=== PATIENT | female | born 1960 | race Caucasian/White ===

== ENCOUNTER → 2022-03-24 10:39 | Outpatient (BNVA) | payer OTHER, SELFPAY | PROVIDERS: PCP Physician Assistant; Visit Provider Emergency Medicine | DX: R69 Illness, unspecified (principal); J10.1 Influenza due to other identified influenza virus with other respiratory manifestations | CPT/HCPCS: 87400; 87426 ==

== ENCOUNTER → 2024-11-13 13:20 | Outpatient (BNVA) | payer OTHER, SELFPAY | PROVIDERS: PCP Physician Assistant; Visit Provider Nurse Practitioner | DX: R35.0 Frequency of micturition (principal); I10 Essential (primary) hypertension | CPT/HCPCS: 80053; 80061; 81000; 84443; 87086 ==

== ENCOUNTER 2025-01-17 18:01 | Emergency (ER) | payer OTHER, SELFPAY ==
--- OUTSIDE RECORDS SUMMARY | 2025-01-17 18:05 | XMS_ITS | Encounter Summary ---
Author Organization [facility] Address [address] [place] [address] Care Team Providers Care Electrical Cad Designer Name Role Phone Unavailable Primary Care Provider Unavailabl e Encounter Details Date Type Department Care Team (Late st Contact Info) Description 04/09/2006 Outpatient Historical [facility] Medicine [place] [address] [phone] Wendy Motley MD [address] [place] [phone] Social History Tobacco Use Types Packs/Day Years Used Date Smoking Tobacco: Never Assessed Comments Unknown Sex and Gender Information Value Date Recorded Sex Assigned at Not on file Legal Sex Female 3:03 AM DATA VIRTUALIZATION CONSULTANT Gender Identity Not on file Sexual Orientation Not on file documented as of this encounter Plan of Treatment Not on file documented as of this encounter Visit Diagnoses Not on filedocumented in this encounter
--- OUTSIDE RECORDS SUMMARY | 2025-01-17 18:05 | XMS_ITS | Encounter Summary ---
Author Organization [facility] Address [address] [place] [address] Care Team Providers Care Auto Transmission Specialist Name Role Phone Unavailable Primary Care Provider Unavailabl e Encounter Details Date Type Department Care Team (Late st Contact Info) Description 07/20/2002 Outpatient Historical [address] [phone] Svitlana Gaspar MD [address] [place] [address] Social History Tobacco Use Types Packs/Day Years Used Date Smoking Tobacco: Never Assessed Comments Unknown Sex and Gender Information Value Date Recorded Sex Assigned at Not on file Legal Sex Female 3:03 AM EDGER LINER Gender Identity Not on file Sexual Orientation Not on file documented as of this encounter Plan of Treatment Not on file documented as of this encounter Visit Diagnoses Not on filedocumented in this encounter
--- OUTSIDE RECORDS SUMMARY | 2025-01-17 18:05 | XMS_ITS | Encounter Summary ---
Author Organization [facility] Address [address] [place] [address] Care Team Providers Care Toe Puller Name Role Phone Unavailable Primary Care Provider Unavailabl e Encounter Details Date Type Department Care Team (Latest Contact Info) Description 07/20/[address] [phone] Svitlana Gaspar MD [address] [place] [address] HYPERTENSION NOS (Primary Dx); COUGH; ACUTE URI NOS Social History Tobacco Use Types Packs/Day Years Used Date Smoking Tobacco: Never Assessed Comments Unknown Sex and Gender Information Value Date Recorded Sex Assigned at Not on file Legal Sex Female 3:03 AM ROUTE DELIVERY DRIVER Gender Identity Not on file Sexual Orientation Not on file documented as of this encounter Plan of Treatment Not on file documented as of this encounter Visit Diagnoses Diagnosis Unspecified essential hypertension- Primary Cough Acute upper respiratory infections of unspecified site documented in this encounter
[2025-01-17 18:06] VITALS: BP 117/75; PULSE 66; RESP 16; TEMP 36.4; O2SAT 99; BMI 30.9
--- OUTSIDE RECORDS SUMMARY | 2025-01-17 18:06 | XMS_ITS | Encounter Summary ---
Author Organization [facility] Address [address] [place] [address] Care Team Providers Care Emts Name Role Phone Unavailable Primary Care Provider Unavailabl e Encounter Details Date Type Department Care Team (Latest Contact Info) Description 10/25/2006 Outpatient Historical [facility]rology- [address]trance [address], [address] [place] [address] Williams Khan MD [address] [place] [address] [address] [place] [address] Urinary Tract Infection, Site not Specified (Primary Dx) Social History Tobacco Use Types Packs/Day Years Used Date Smoking Tobacco: Never Assessed Comments Unknown Sex and Gender Information Value Date Recorded Sex Assigned at Not on file Legal Sex Female 3:03 AM WIRE DRAWING DIE MAKER Gender Identity Not on file Sexual Orientation Not on file documented as of this encounter Plan of Treatment Not on file documented as of this encounter Visit Diagnoses Diagnosis Urinary tract infection, site not specified- Primary documented in this encounter
--- OUTSIDE RECORDS SUMMARY | 2025-01-17 18:06 | XMS_ITS | Encounter Summary ---
Author Organization [facility] Address [address] [place] [address] Care Team Providers Care Hoist Cylinder Loader Name Role Phone Unavailable Primary Care Provider Unavailabl e Encounter Details Date Type Department Care Team (Latest Contact Info) Description 01/16/2005 Outpatient Historical [facility] Medicine [address] [phone] Wendy Motley MD [address] [place] [phone] HYPERTENSION NOS (Primary Dx); ALLERGY, UNSPECIFIED; ROUTINE COMPUTER NETWORK SUPPORT SPECIALIST EXAMINATION; Vaccine for influenza Social History Tobacco Use Types Packs/Day Years Used Date Smoking Tobacco: Never Assessed Comments Unknown Sex and Gender Information Value Date Recorded Sex Assigned at Not on file Legal Sex Female 3:03 AM TEXTILE CONSERVATOR Gender Identity Not on file Sexual Orientation Not on file documented as of this encounter Plan of Treatment Not on file documented as of this encounter Visit Diagnoses Diagnosis Unspecified essential hypertension- Primary Allergy, unspecified not elsewhere classified Routine gynecological examination Vaccine for influenza Need for prophylactic vaccination and inoculation against influenza documented in this encounter
--- OUTSIDE RECORDS SUMMARY | 2025-01-17 18:06 | XMS_ITS | Encounter Summary ---
Author Organization [facility] Address [address] [place] [address] Care Team Providers Care Divemaster Name Role Phone Unavailable Primary Care Provider Unavailabl e Encounter Details Date Type Department Care Team (Latest Contact Info) Description 12/31/2003 Outpatient Historical [facility] Medicine[address] [phone] Wendy Motley MD [address] [place] [phone] HYPERTENSION NOS (Primary Dx) Social History Tobacco Use Types Packs/Day Years Used Date Smoking Tobacco: Never Assessed Comments Unknown Sex and Gender Information Value Date Recorded Sex Assigned at Not on file Legal Sex Female 3:03 AM TELEPHONE INTERCEPTOR OPERATOR Gender Identity Not on file Sexual Orientation Not on file documented as of this encounter Plan of Treatment Not on file documented as of this encounter Visit Diagnoses Diagnosis Unspecified essential hypertension- Primary documented in this encounter
--- OUTSIDE RECORDS SUMMARY | 2025-01-17 18:06 | XMS_ITS | Encounter Summary ---
Author Organization [facility] Address [address] [place] [address] Care Team Providers Care Contact Center Consultant Name Role Phone Unavailable Primary Care Provider Unavailabl e Encounter Details Date Type Department Care Team (Late st Contact Info) Description 01/16/2005 Outpatient Historical [facility] Medicine [place] [address] [phone] Wendy Motley MD [address] [place] [phone] Social History Tobacco Use Types Packs/Day Years Used Date Smoking Tobacco: Never Assessed Comments Unknown Sex and Gender Information Value Date Recorded Sex Assigned at Not on file Legal Sex Female 3:03 AM MUSIC DIRECTOR Gender Identity Not on file Sexual Orientation Not on file documented as of this encounter Plan of Treatment Not on file documented as of this encounter Visit Diagnoses Not on filedocumented in this encounter
--- OUTSIDE RECORDS SUMMARY | 2025-01-17 18:06 | XMS_ITS | Clinical Summary ---
Author Organization [facility] Address [address] [place] [address] Care Team Providers Care Market Research Interviewer Name Role Phone Unavailable Primary Care Provider Unavailabl e Allergies Active Allergy Reactions Criticality Noted Date Comments Aloe Rash Low 03/24/2019 Medications No known medications Active Problems No known active problems Immunizations Immunization Administration Dates Next Due (TDVAX)(7 YRS UP) TETANUS AN D DIPHTHERIA TOXOIDS, ADSORBED (2 LF OF TETANUS TOXOID AND 2 LF OF DIPHTHERIA TOXOID), 0.5ML (PF), IM 10/03/2007 Influenza Seasonal Unspecified Formulation IM ,02/15/1998 Family History Medical History Relation Name Comments Cancer Father Cancer Maternal Grandmother Diabetes Mother Heart Disease Paternal Grandfather Heart Disease Paternal Grandmother Relation Name Status Comments Father Maternal Grandmother Mother Paternal Grandfather Paternal Grandmother Social History Tobacco Use Types Packs/Day Years Used Date Smoking Tobacco: Never Smokeless Tobacco: Never Comments No Sex and Gender Information Value Date Recorded Sex Assigned at Not on file Legal Sex Female 3:03 AM BELLY ROLLER Gender Identity Not on file Sexual Orientation Not on file Last Filed Vital Signs Vital Sign Reading Time Taken Comments Blood Pressure 150/90 03/24/2019 9:02 AM BELLY ROLLER Pulse - - Temperature - - Respiratory Rate - - Oxygen Saturation - - Inhaled Oxygen Concentration - - Weight 75.2 kg (165 lb 12.8 oz) 03/24/2019 9:02 AM BELLY ROLLER Height 160 cm (5' 3 ) 03/24/2019 9:02 AM BELLY ROLLER Body Mass Index 29.37 03/24/2019 9:02 AM BELLY ROLLER Plan of Treatment Health Maintenance Due Date Last Done Comments BREAST CANCER SCREENING 1998 COLORECTAL SCREENING 12/09/2003 Colorectal Cancer Screening 12/09/2003 FIT-DNA Q 3 years 12/09/2003 FIT/FOBT Q 1 year 12/09/2003 Flex Sig/CT Colonography Q 5 years 12/09/2003 DTAP/TDAP/TD VACCINES (1 - Tdap) 10/04/2007 10/03/19 08 PNEUMOCOCCAL VACCINE 50+ YEA RS (1 of 1 - PCV) 2008 ZOSTER VACCINE (1 of 2) 2008 OSTEOPOROSIS SCREENING 12/09/2023 INFLUENZA VACCINE (#1) 2024 01/16/2005, 1997 RSV VACCINE (60+ or ) (1 - 1-dose 75+ series) 2033 Insurance [employer] [id number]
--- OUTSIDE RECORDS SUMMARY | 2025-01-17 18:06 | XMS_ITS | Encounter Summary ---
Author Organization [facility] Address [address] [place] [address] Care Team Providers Care Migratory Worker Name Role Phone Unavailable Primary Care Provider Unavailabl e Encounter Details Date Type Department Care Team (Latest Contact Info) Description 12/17/2003 Outpatient Historical [facility] Medicine [address] [phone] Wendy Motley MD [address] [place] [phone] HYPERTENSION NOS (Primary Dx); CONTRACEPTIVE MANGMT NEC; Gynecologic examination Social History Tobacco Use Types Packs/Day Years Used Date Smoking Tobacco: Never Assessed Comments Unknown Sex and Gender Information Value Date Recorded Sex Assigned at Not on file Legal Sex Female 3:03 AM REGIONAL INTERMODAL TRUCK DRIVER Gender Identity Not on file Sexual Orientation Not on file documented as of this encounter Plan of Treatment Not on file documented as of this encounter Visit Diagnoses Diagnosis Unspecified essential hypertension- Primary Other general counseling and advice for contraceptive management Gynecologic examination Gynecological examination documented in this encounter
--- OUTSIDE RECORDS SUMMARY | 2025-01-17 18:06 | XMS_ITS | Encounter Summary ---
Author Organization [facility] Address [address] [place] [address] Care Team Providers Care Knife Grinder Name Role Phone Unavailable Primary Care Provider Unavailabl e Encounter Details Date Type Department Care Team (Latest Contact Info) Description 11/23/[address] [phone] Svitlana Gaspar MD [address] [place] [address] Gynecologic examination (Primary Dx); SCREENING MAL NEOP-SITE NEC Social History Tobacco Use Types Packs/Day Years Used Date Smoking Tobacco: Never Assessed Comments Unknown Sex and Gender Information Value Date Recorded Sex Assigned at Not on file Legal Sex Female 3:03 AM PLAY WRITER Gender Identity Not on file Sexual Orientation Not on file documented as of this encounter Plan of Treatment Not on file documented as of this encounter Visit Diagnoses Diagnosis Gynecologic examination- Primary Gynecological examination Special screening for malignant neoplasms of other sites documented in this encounter
--- OUTSIDE RECORDS SUMMARY | 2025-01-17 18:06 | XMS_ITS | Encounter Summary ---
Author Organization [facility] Address [address] [place] [address] Care Team Providers Care Quality Systems Specialist Name Role Phone Unavailable Primary Care Provider Unavailabl e Encounter Details Date Type Department Care Team (Late st Contact Info) Description 11/23/2002 Outpatient Historical [address] [phone] Svitlana Gaspar MD [address] [place] [address] Social History Tobacco Use Types Packs/Day Years Used Date Smoking Tobacco: Never Assessed Comments Unknown Sex and Gender Information Value Date Recorded Sex Assigned at Not on file Legal Sex Female 3:03 AM CHIROPRACTOR ASSISTANT Gender Identity Not on file Sexual Orientation Not on file documented as of this encounter Plan of Treatment Not on file documented as of this encounter Visit Diagnoses Not on filedocumented in this encounter
--- OUTSIDE RECORDS SUMMARY | 2025-01-17 18:06 | XMS_ITS | Encounter Summary ---
Author Organization [facility] Address [address] [place] [address] Care Team Providers Care Animal Cruelty Investigator Name Role Phone Unavailable Primary Care Provider Unavailabl e Encounter Details Date Type Department Care Team (Late st Contact Info) Description 12/17/2003 Outpatient Historical [facility] Medicine [place] [address] [phone] Wendy Motley MD [address] [place] [phone] Social History Tobacco Use Types Packs/Day Years Used Date Smoking Tobacco: Never Assessed Comments Unknown Sex and Gender Information Value Date Recorded Sex Assigned at Not on file Legal Sex Female 3:03 AM THERAPEUTIC PROGRAM WORKER Gender Identity Not on file Sexual Orientation Not on file documented as of this encounter Plan of Treatment Not on file documented as of this encounter Visit Diagnoses Not on filedocumented in this encounter
--- OUTSIDE RECORDS SUMMARY | 2025-01-17 18:06 | XMS_ITS | Encounter Summary ---
Author Organization [facility] Address [address] [place] [address] Care Team Providers Care Dam Operator Name Role Phone Unavailable Primary Care Provider Unavailabl e Encounter Details Date Type Department Care Team (Latest Contact Info) Description 04/05/2006 Outpatient Historical [facility] Medicine [address] [phone] Wendy Motley MD [address] [place] [phone] Unspecified Essential Hypertension (Primary Dx); Other General Counseling and Advice for Contraceptive Management; Routine Gynecological Examination Social History Tobacco Use Types Packs/Day Years Used Date Smoking Tobacco: Never Assessed Comments Unknown Sex and Gender Information Value Date Recorded Sex Assigned at Not on file Legal Sex Female 3:03 AM MANAGING MEMBER Gender Identity Not on file Sexual Orientation Not on file documented as of this encounter Plan of Treatment Not on file documented as of this encounter Visit Diagnoses Diagnosis Unspecified essential hypertension- Primary Other general counseling and advice for contraceptive management Routine gynecological examination documented in this encounter
--- OUTSIDE RECORDS SUMMARY | 2025-01-17 18:06 | XMS_ITS | Encounter Summary ---
Author Organization [facility] Address [address] [place] [address] Care Team Providers Care Engraver Flatware Name Role Phone Unavailable Primary Care Provider Unavailabl e Encounter Details Date Type Department Care Team (Latest Contact Info) Description 09/12/[address] [phone] Svitlana Gaspar MD [address] [place] [address] CELLULITIS NOS (Primary Dx); Dermatitis due to plant; HYPERTENSION NOS; Gynecologic examination Social History Tobacco Use Types Packs/Day Years Used Date Smoking Tobacco: Never Assessed Comments Unknown Sex and Gender Information Value Date Recorded Sex Assigned at Not on file Legal Sex Female 3:03 AM PUBLIC POLICY ASSOCIATE Gender Identity Not on file Sexual Orientation Not on file documented as of this encounter Plan of Treatment Not on file documented as of this encounter Visit Diagnoses Diagnosis Cellulitis and abscess of unspecified site- Primary Dermatitis due to plant Contact dermatitis and other eczema due to plants (except food) Unspecified essential hypertension Gynecologic examination Gynecological examination documented in this encounter
--- OUTSIDE RECORDS SUMMARY | 2025-01-17 18:06 | XMS_ITS | Encounter Summary ---
Author Organization [facility] Address [address] [place] [address] Care Team Providers Care Financial Planning Consultant Name Role Phone Unavailable Primary Care Provider Unavailabl e Encounter Details Date Type Department Care Team (Latest Contact Info) Description 02/28/2007 Outpatient Historical [facility]- [address] Entrance B, 3rd [place] [address] Williams Khan MD [address] [place] [address] [address] [place] [address] Urinary Tract Infection, Site not Specified (Primary Dx) Social History Tobacco Use Types Packs/Day Years Used Date Smoking Tobacco: Never Assessed Comments Unknown Sex and Gender Information Value Date Recorded Sex Assigned at Not on file Legal Sex Female 3:03 AM QA ENGINEER Gender Identity Not on file Sexual Orientation Not on file documented as of this encounter Plan of Treatment Not on file documented as of this encounter Visit Diagnoses Diagnosis Urinary tract infection, site not specified- Primary documented in this encounter
--- NOTE | 2025-01-17 18:30 | ED_ITS ---
HPI - Nausea/Vomiting/Diarrhea 2 General: Chief complaint: Nausea/Vomiting/Diarrhea Stated complaint: diyzz, lightheaded, n/v/d Time Seen by Provider: 01/17/25 18:19 Source: patient Mode of arrival: wheelchair Limitations: no limitations History of Present Illness: Patient is a 64-year-old female who presents to the ED today for medical evaluation. Patient states she had ate at a restaurant prior to attending a fall festival in [place]. She states they had shortly arrived at the festival when she began feeling acutely ill with nausea and diarrhea. She then subsequently had some vomiting. She feels like her vision got wavy . She states this has since resolved. She was evaluated by the fire department who took her blood pressure and pulse ox-reporting these were both low but does not have specific numbers. Upon arrival her vitals are stable. She does feel like she feels better apart from feeling generally weak. She states vision is normal. She has no focal neurologic deficits. She is not having any abdominal pain. She feels like her nausea has improved. MD elicited complaint: nausea, vomiting and diarrhea Onset (ago): hour(s) Description of diarrhea: watery Associated nausea: Yes Associated abdominal pain: No Location of pain: None Pain consistency: now resolved Severity: moderate Exacerbating factors: none Relieving factors: none Associated symtoms: Reports nausea; Denies change in vision, chest pain, dizziness, dysuria, fatigue, headache(s), malaise, palpitations or syncope Related Data Previous Rx's ?Medication ?Instructions ?Recorded cetirizine 10 mg capsule 10 mg PO DAILY #30 caps 11/14 01/07 estradiol 0.01% (0.1 mg/gram) 2 g vaginal DAILY #42.5 grams 12/11/24 vaginal cream lisinopril 5 mg tablet 5 mg PO DAILY #30 tabs 12/11 hydrochlorothiazide 25 mg tablet See Rx Instructions . Route 01/05/25 .COMPLEX #30 tabs prednisone 10 mg tablet 30 mg (3 x 10 mg) PO DAILY # 15 tabs 01/08/25 Allergies Allergy/AdvReac Type Severity Reaction Status Date / Time niacin Allergy Unknown Verified 01/08/25 13:36 Review of Systems 2 Const: Reports: other (generalized weakness); Denies: fever(s), chills, body aches, fatigue or malaise Eyes: Denies: change in vision or blurry vision Card: Denies: chest pain, palpitations, irregular heart rhythm, lightheadedness, syncope or dyspnea on exertion Resp: Denies: dyspnea, productive cough or pain on inspiration GI: Reports: nausea, vomiting and diarrhea; Denies: abdominal pain : Denies: flank pain or dysuria Musc: Denies: neck pain, back pain, extremity pain, extremity swelling, joint pain, joint swelling or joint redness Skin/Breast: Denies: rash Neuro: Reports: difficulty walking (secondary to feeling weak); Denies: headache(s), numbness in extremities, weakness in extremities, sensory changes or dizziness PFSH ED 2 PFSH: Social History Smoking and tobacco/nicotine status: never used tobacco/nicotine Physical Exam 2 Const: COMMON NORMALS: no acute distress, average body habitus, patient oriented x3, no limitations, healthy appearing, alert and well nourished G ENERAL APPEARANCE: cooperative ORIENTATION/CONSCIOUSNESS: Yes awake, Yes oriented to person, Yes oriented to place and Yes oriented to time HENMT: COMMON NORMALS: normocephalic and atraumatic HEAD & SCALP: normal to inspection, normocephalic and atraumatic FACE & SINUS: normal facial exam and face symmetric Eye: COMMON NORMALS: Equal, round and reactive pupils present and EOMs intact bilaterally GENERAL EYE: appearance normal, both eyes and all related structures and normal light reflex PUPIL: Yes Equal, round and reactive pupils present DIRECT OPHTHALMOSCOPY: Yes normal light reflex Neck/C-Spine: COMMON NORMALS: full ROM, no lymphadenopathy, supple and no meningeal signs Chest: COMMONS NORMALS: normal inspection of the chest Resp: COMMON NORMALS: normal respiratory effort and clear to auscultation bilaterally AUSCULTATION: clear to auscultation bilaterally Cardio: COMMON NORMALS: regular rate and regular rhythm RATE: regular rate RHYTHM: regular rhythm GI: COMMON NORMALS: Normal to inspection, nondistended, normoactive bowel sounds present, Soft to palpation, non-tender, No hepatosplenomegaly present and no masses PALPATION: Yes Soft to palpation and Yes No hepatosplenomegaly present : COMMON NORMALS: Yes no CVA tenderness BLADDER/KIDNEY EXAM: Yes no CVA tenderness Back/Pelvis: COMMON NORMALS: no CVA tenderness and thoracic and lumbar spine normal to inspection Extremity: COMMON NORMALS: normal to inspection GENERAL: Yes normal exam except as noted Neuro: TRANG COMA SCALE: document GCS findings [place] coma scale eye opening: Spontaneous [place] coma scale verbal response: Orientated [place] coma scale motor response: Obey commands [place] coma scale total score: 15 COMMON NORMALS: patient oriented x3, CN's II-XII intact bilaterally, moves all extremities, no focal motor deficits and no sensory deficits noted S ENSORIUM/ORIENTATION: Yes alert, Yes oriented to person, Yes oriented to place and Yes oriented to time MENINGEAL SIGNS: Yes no meningeal signs Skin: COMMON NORMALS: no rashes or lesions noted GENERAL SKIN EXAM: no rashes or lesions noted Course 2 Vital Signs: Vital signs: Vital Signs Temperature 97.5 F L 01/17/25 18:06 Pulse Rate 71 01/17/25 19:18 Respiratory Rate 16 01/17/25 18:06 Blood Pressure 108/56 01/17/25 19:18 Pulse Oximetry 97 01/17/25 19:18 Oxygen Delivery Me thod Room Air 01/17/25 19:18 MDM - Nausea/Vomiting/Diarrhea Medical Decision Making Patient feeling better after IV fluids here. Her vital signs are stable. She has not had any further episodes of vomiting or diarrhea. No abdominal pain. Blood work overall nonactionable. She does have a white count of 18.5 most likely secondary to steroid use-states she was recently prescribed steroids secondary to bronchitis and is still taking them. UA and CXR without evidence for infection. Patient is now ambulatory. She feels comfortable going home. Return to ED precautions discussed. Differential Diagnosis Likely food poisoning, gastroenteritis and dehydration Medical Records I reviewed the patient's medical records. Lab Data I reviewed the patient's lab results. 01/17/25 18:59 01/17/25 18:59 Radiology Impressions Chest X-Ray 01/17/25 19:08 IMPRESSION: No acute findings. Laboratory Results WBC 18.54 10^3/uL (3.29-11.43) H 01/17/25 18:59 RBC 4.06 10^6/uL (3.85-5.65) 01/17/25 18:59 Hgb 12.70 g/dL (11.27-16.99) 01/17/25 18:59 Hct 38.4 % (36-47) 01/17/25 18:59 MCV 94.6 fl (85-98) 01/17/25 18:59 MCH 31.3 pg (27-33) 01/17/25 18:59 MCHC 33.1 g/dL (30-55) 01/17/25 18:59 RDW 15.3 % (12.1-15.1) H 01/17/25 18:59 Plt Count 247 10^3/cmm (157-399) 01/17/25 18:59 MPV 11.2 fL (7.4-10.4) H 01/17/25 18:59 Neut % (Auto) 83.1 % 01/17/25 18:59 Lymph % (Auto) 7.2 % 01/17/25 18:59 [place] % (Auto) 8.7 % 01/17/25 18:59 Eos % (Auto) 0.2 % 01/17/25 18:59 Baso % (Auto) 0.3 % 01/17/25 18:59 Neut # (Auto) 15.42 10^3/uL (1.8-7.7) H 01/17/25 18:59 Lymph # (Auto) 1.3 10^3/uL (0.8-4.8) 01/17/25 18:59 [place] # (Auto) 1.6 10^3/uL (0.2-0.9) H 01/17/25 18:59 Eos # (Auto) 0.0 10^3/uL (0.0-0.8) 01/17/25 18:59 Baso # (Auto) 0.1 10^3/uL (0.0-0.1) 01/17/25 18:59 Nucleated RBC % (auto) 0 % 01/17/25 18:59 Nucleated RBCs # 0.0 /100WBC 01/17/25 18:59 Sodium 140 mmol/L (136-145) 01/17/25 18:59 Potassium 3.5 mmol/L (3.5-5.1) 01/17/25 18:59 Chloride 102 mmol/L (98-107) 01/17/25 18:59 Carbon Dioxide 28 mmol/L (22-29) 01/17/25 18:59 Anion Gap 13.5 (5-19) 01/17/25 18:59 BUN 20 mg/dL (8-23) 01/17/25 18:59 Creatinine 1.1 mg/dL (0.5-0.9) H 01/17/25 18:59 GFR Calculation 49.7 mL/min (90-130) L 01/17/25 18:59 Glucose 131 mg/dL (65-115) H 01/17/25 18:59 Calculated Osmolality 294 mOsm/kg (285-295) 01/17/25 18:59 Calcium 9.2 mg/dL (8.5-10.5) 01/17/25 18:59 Total Bilirubin 0.8 mg/dL (0.15-1.2) 01/17/25 18:59 AST 13 U/L (0-32) 01/17/25 18:59 ALT 13 U/L (0-33) 01/17/25 18:59 Alkaline Phosphatase 93 U/L (35-105) 01/17/25 18:59 Total Protein 6.9 g/dL (6.6-8.7) 01/17/25 18:59 Albumin 4.3 g/dL (3.5-5.2) 01/17/25 18:59 Globulin 2.6 g/dL (1.3-4.6) 01/17/25 18:59 Lipase 17 U/L (13-60) 01/17/25 18:59 Urine Color Yellow (Yellow) 01/17/25 19:39 Urine Appearance Slightly cloudy (CLEAR) 01/17/25 19:39 Urine pH 6 (5-7) 01/17/25 19:39 Ur Specific [place] 1.010 (1.005-1.030) 01/17/25 19:39 Urine Protein 1+ (Negative) H 01/17/25 19:39 Urine Glucose (UA) Norm (Normal) 01/17/25 19:39 Urine Ketones Negative (Negative) 01/17/25 19:39 Urine Blood Neg (Negative) 01/17/25 19:39 Urine Nitrate Negative (Negative) 01/17/25 19:39 Urine Bilirubin Neg (Negative) 01/17/25 19:39 Urine Urobilinogen 1 mg/dL (Negative) H 01/17/25 19:39 Ur Leukocyte Esterase Negative (Negative) 01/17/25 19:39 Urine RBC 0-4 /hpf (0-2) H 01/17/25 19:39 Urine WBC 0-5 /hpf (0-5) 01/17/25 19:39 Ur Squamous Epith Cells 10-15 /hpf (0-5) H 01/17/25 19:39 Amorphous Sediment 1+ /hpf 01/17/25 19:39 Urine Bacteria 1+ /hpf (NONE) H 01/17/25 19:39 Hyaline Casts 55-80 /lpf H 01/17/25 19:39 Urine Mucus 3+ /hpf 01/17/25 19:39 All radiology interpretation(s) finalized by discharge Discharge Plan Discharge Patient Disposition: Home Clinical Impression: Gastroenteritis Condition: Stable Prescriptions: No Action prednisone 10 mg tablet 30 mg PO DAILY Qty: 15 0RF lisinopril 5 mg tablet 5 mg PO DAILY Qty: 30 2RF estradiol 0.01 % (0.1 mg/gram) cream 2 g vaginal DAILY Qty: 42.5 6RF Rx Instructions: Use cream 2 times a week. cetirizine 10 mg capsule 10 mg PO DAILY Qty: 30 3RF hydrochlorothiazide 25 mg tablet See Rx Instructions .ROUTE .COMPLEX Qty: 30 1RF Dose Instruction: TAKE ONE TABLET BY MOUTH DAILY Rx Instructions: TAKE ONE TABLET BY MOUTH DAILY Discharge Orders: Discharge ED (Routine); Ordered 01/17/25 Ordered By: Briana Hernández Referrals: Delia Weller FNP [Primary Care Provider, Nurse Practitioner] Patient Instructions: Gastroenteritis (DC), Foodborne Illness (DC), Patient Portal & Amy Instructions Activity Restrictions/Additional Instructions: As we discussed, your blood work here overall is nonactionable. Your white count was elevated that I feel this most likely is secondary to your recent steroid use. Urine analysis and chest x-ray does not show evidence for infection. You were reportedly feeling better after fluids and at time of discharge. He may follow-up with primary care this week if needed. You may return to the emergency department at anytime for any further concerns you may have. I hope you begin to feel better soon. Print Language: Australian Coding Level of Care Code ED Creative Manager for Wilner Tsai
[2025-01-17 19:07] LABS: Hematocrit 38.4 % (36-47); Hemoglobin 12.70 g/dL (11.27-16.99); Mean Corpuscular HGB Conc 33.1 g/dL (30-55); Mean Corpuscular Hemoglobin 31.3 pg (27-33); Mean Corpuscular Volume 94.6 fl (85-98); Nucleated Red Blood Cells % 0 %; Platelet Count 247 10^3/cmm (157-399); Red Blood Count 4.06 10^6/uL (3.85-5.65); White Blood Count 18.54 10^3/uL (3.29-11.43)
--- NOTE | 2025-01-17 19:08 | XRR_ITS ---
PROCEDURE INFORMATION: Exam: XR Chest Exam date and time: 01/17/2025 7:16 PM Age: 64 years old Clinical indication: Cough; Prior surgery; Surgery date: <1 month; Surgery type: Cardiac node ablation TECHNIQUE: Imaging protocol: Radiologic exam of the chest. Views: 1 view. COMPARISON: No relevant prior studies available. FINDINGS: Lungs: Unremarkable. No consolidation. Pleural spaces: Unremarkable. No pleural effusion. No pneumothorax. Heart/Mediastinum: Unremarkable. No cardiomegaly. Bones/joints: Unremarkable. XR/XR chest 1V portable [id number] IMPRESSION: No acute findings.
[2025-01-17 19:18] VITALS: BP 108/56; PULSE 71; O2SAT 97
[2025-01-17 19:50] LABS: Glucose Urine UA Norm (Normal); Specific Gravity, Urine 1.010 (1.005-1.030)
[2025-01-17 19:51] LABS: Nitrate Urine Negative (Negative)
[2025-01-17 20:00] LABS: Add Urine Microscopic? YES; UA Manual Slide Review YES
[2025-01-17 20:45] LABS: Alanine Aminotransferase 13 U/L (0-33); Albumin Level 4.3 g/dL (3.5-5.2); Alkaline Phosphatase 93 U/L (35-105); Anion Gap 13.5 (5-19); Aspartate Amino Transferase 13 U/L (0-32); Blood Urea Nitrogen 20 mg/dL (8-23); Calcium 9.2 mg/dL (8.5-10.5); Carbon Dioxide 28 mmol/L (22-29); Chloride 102 mmol/L (98-107); Globulin 2.6 g/dL (1.3-4.6); Glucose 131 mg/dL (65-115); Lipase 17 U/L (13-60); Osmolality Calculated 294 mOsm/kg (285-295); Potassium 3.5 mmol/L (3.5-5.1); Sodium 140 mmol/L (136-145); Total Protein 6.9 g/dL (6.6-8.7)
[2025-01-17 20:59] LABS: Creatinine Clr Calc Pharmacy 50.1863
[2025-01-17 21:27] VITALS: BP 135/67; PULSE 66; O2SAT 95
== END 2025-01-17 21:28 | disposition home or self-care (01) ==
PROVIDERS: Emergency Provider Physician Assistant; PCP Nurse Practitioner
DX: K52.9 Noninfective gastroenteritis and colitis, unspecified (principal)
CPT/HCPCS: 71045; 80053; 81001; 83690; 85025; 96360; 99284; J7030

== ENCOUNTER → 2025-03-05 13:57 | Outpatient (BNVA) | payer OTHER, SELFPAY | PROVIDERS: PCP Nurse Practitioner; Visit Provider Nurse Practitioner | DX: N39.0 Urinary tract infection, site not specified (principal); R35.0 Frequency of micturition | CPT/HCPCS: 81000; 87086 ==